=== PATIENT | male | born 1950 | race Caucasian/White ===

== ENCOUNTER 2019-01-19 21:43 | Inpatient (IN) ==
[2019-01-19] MEDS ORDERED: NS 1,000 ML IV ONE (22:30)
[2019-01-19 23:01] LABS: BASO# 0.01 X1000 (0.0-0.2); BASO% 0.1 % (0.0-0.8); EOS# 0.03 X1000 (0.0-0.7); EOS% 0.4 % (0.0-10.0); HEMATOCRIT 32.9 % (42.0-52.0); IMM GRAN# 0.01 X1000 (0.0-0.04); IMM GRAN% 0.1 % (0.0-0.5); LYMPH# 1.11 X1000 (1.2-3.4); LYMPH% 16.1 % (20.5-51.1); MCH 32.5 PG (27-31); MCHC 33.4 g/dL (33-37); MCV 97.3 FL (81-99); MONO# 0.59 X1000 (0.11-0.59); MONO% 8.6 % (1.7-9.3); MPV 8.6 FL (7.4-10.4); NEUT# 5.14 X1000 (1.4-6.5); NEUT% 74.7 % (42.2-75.2); PLT 260 X1000 (130-400); RBC 3.38 XMIL (4.7-6.1); WBC 6.89 X1000 (4.8-10.8)
[2019-01-19 23:39] LABS: ALBUMIN 3.4 g/dL (3.5-5.0); CALCIUM 10.6 mg/dL (8.8-10.2); CREATININE 2.8 mg/dL (0.7-1.2); POTASSIUM 4.8 mmol/L (3.5-5.1); TOTAL BILIRUBIN 0.4 mg/dL (0.20-1.00); TOTAL PROTEIN 8.1 g/dL (6.3-8.3)
[2019-01-20] MEDS ORDERED: NORCO-7.5 PO ONE (00:08)
--- NOTE | 2019-01-20 00:24 | PROVIDER DOCUMENTATION ---
This chart was entered by Sulema Wright Scribe, acting as scribe for Garcia Gudino MD. HPI-General Adult - General Chief Complaint: Altered Mental Status Stated Complaint: AMS Time Seen by Provider: 01/19/19 21:59 Source: patient, family Allergies/Adverse Reactions: Patient Allergies Allergy/AdvReac Type Severity Reaction Status Date / Time cephalexin monohydrate * Allergy Mild HIVES Verified 01/13/19 09:33 [From Keflex] Egg Derived Allergy Unknown Verified 01/13/19 09:33 morphine AdvReac Severe CONFUSION Verified 01/13/19 09:33 Home Medications: Home Medication List Medication Instructions Recorded Confirmed Last Taken Type Bupropion HCl [Wellbutrin Xl] 300 mg PO DAILY 11/24/18 01/19/19 01/13/19 History Irbesartan 300 mg PO DAILY 11/24/18 01/19/19 01/14/19 06:00 History Metoprolol Succinate E.r. [Toprol 50 mg PO DAILY 11/24/18 01/19/19 01/14/19 06: 00 History Xl] Omeprazole [Prilosec] 20 mg PO DAILY 11/24/18 01/19/19 01/13/19 History Acetaminophen [Acetaminophen Extra 500 mg PO PRN PRN 01/13/19 01/19/19 01/13/19 History Strength] Amoxicillin 1,600 mg PO DIRECTED 01/13/19 01/19/19 01/14/19 06:00 History Diphenhydramine HCl 2 cap PO PRN PRN 01/13/19 01/19/19 3 Days Ago History ~01/11/19 Gabapentin [Neurontin] 2 cap PO TID 01/13/19 01/19/19 01/13/19 History Guaifenesin/Dextromethorphan 10 ml PO PRN PRN 01/13/19 01/19/19 01/13/19 History [Tussin Dm Cough Syrup] Ibuprofen [Motrin] 100 mg PO PRN PRN 01/13/19 01/19/19 3 Days Ago History ~01/11/19 Morphine Ir 15 mg PO Q6H PRN 01/13/19 01/19/19 01/14/19 06:00 History Ranitidine [Zantac] 300 mg PO QHS PRN 01/13/19 01/14/19 3 Days Ago History ~01/11/19 - History of Present Illness -Gen Adult Nature of Presenting Problems: pt is a 68 yr old male presenting via EMS from home, pt was AMS when EMS arrived at the scene, gave 1mg of Narcan IV. PT is LOCx3 now. Pt reports broken left ribs after having bone biopsy done last . shortness of breath, pain with inspiration. reports pt has been sleeping all day, difficult to rouse, pt has been taking 15mg morphine x 4 daily x 1 week, last dose of morphine was 0715 this AM.pt has had little to eat or drink today, no urine output x 24+hours Location of Pain/Injury: reports: chest (left rib area) Pain Radiation: reports: no radiation Quality of Pain: reports: sharp Severity: reports: severe Onset/Duration: reports: 6 days ago Timing: reports: still present, getting worse Context/Activities at Onset: reports: other (bone biopsy) Modifying Factors: improves with: breathing (worsens pain), coughing (worsens pain), other medication (morphine 15mg 4x daily without relief, gabapentin-no relief) Associated Symptoms: reports: chest pain, cough, fatigue, genitourinary problems (no urine x 24+ hours), loss of appetite, malaise, shortness of breath , pain with inspiration, weakness. denies: fever/chills Similar Symptoms Previously?: Yes Recently seen or treated by another doctor?: Yes Review of Systems - Adult - REVIEW OF SYSTEMS - ADULT Constitutional: reports: jose. denies: chills, fever Eyes: reports: no symptoms reported Ears, Nose, Mouth & Throat: reports: no symptoms reported Cardiovascular: reports: chest pain (rib pain). denies: palpitations, syncope Respiratory: reports: cough, dyspnea on exertion, pleurisy, shortness of breath Gastrointestinal: reports: poor appetite. denies: abdominal pain, diarrhea, nausea, vomiting Genitourinary: reports: other (no urine x 24+ hours) Musculoskeletal: reports: bone pain (left low rib pain). denies: back pain Integumentary: reports: no symptoms reported Neurological: denies: dizziness/vertigo, headache/migraines Psychiatric: reports: no symptoms reported Endocrine: reports: no symptoms reported Hematologic/Lymphatic: reports: no symptoms reported Allergic/Immunologic: reports: no symptoms reported All Other Systems: Reviewed and Negative Past History - Adult - PAST MEDICAL HISTORY-ADULT Review of Records: reports: Old Records Reviewed, Nursing Assessment Review, Medications Reviewed, Social history reviewed & non-contributory. Major Childhood Illnesses: reports: denies history Cardiovascular: reports: HTN Respiratory: reports: denies history Gastrointestinal: reports: denies history Obstetrical/Gynecological: reports: denies history Genitourinary: reports: denies history Musculoskeletal: reports: denies history Neurological: reports: denies history Endocrine/Immune: reports: denies history Other Conditions: reports: denies history - PRIOR SURGERIES/PROCEDURES Surgical/Procedure History: reports: joint replacement (total knee replacement) - IMMUNIZATION STATUS Childhood Immunizations: See Nurse Assessment Flu Vaccine: See Nurse Assessment - FAMILY HISTORY Family History: reviewed, not pertinent - SOCIAL HISTORY Smoking: quit greater than 1 year Substance Use: denies Living Situation: family Physical Exam-General - PHYSICAL EXAM-ADULT Initial Vital Signs Reviewed: Yes - CONSTITUTIONAL General Appearance: moderate distress, obese, lethargic, slow to respond - EYES Eyes: PERRL/EOMI - HEAD, EARS, NOSE, MOUTH & THROAT HENMT: normocephalic/atraumatic, moist mucous membranes - NECK Neck: non-tender, full range of motion, supple, normal inspection Progress - PLAN OF CARE/RESULTS Progress/Plan/Lab Results: Vital Signs - 8 hr 01/19/19 21:55 Temperature 98.9 F Pulse Rate 80 Respiratory Rate 15 Blood Pressure 131/86 O2 Sat by Pulse Oximetry 82 L A/P: MAXIMO pt had broken ribs s./p rib biopsy for suspected MM. Pt has been taking morphine liquid 4-6 times per day, CXR R sided infiltrates, WBC wnl. Started IV fluids and AB, will gibe norco for pain, IV fluid hydration. AMS suspected due to MAXIMO and increased metabolites from morphine not being metabolized. Pt responded imm to Narcan. Pt has not been using incentive spiromertry Result Diagrams: 01/19/19 22:50 01/19/19 22:50 - EKG 1 Time of EKG reading by physician:: 22:36 EKG Read and Signed by:: Garcia Gudino EKG Interpretation (*Must complete 3 of following elements*): Abnormal ( bifasicular block, left anteroir fasicular block) Rate: 76 Rhythm: nsr [place]: normal QRS: RBB - XRAY 1 XRAY Study: Chest Impression: Abnormal (infiltrates right middle lobe) - CT/MRI 1 CT Study: Head Impression: Normal (normal ct of the head) - CONSULTS/PCP/HOSPITALIST Notification #1 *Consult/PCP/Hospitalist*: Dr Cook Time Discussed: 00:05 Reason/Comments: plan of care for pt admission Consult Disposition: Admit Departure - Departure Date of Disposition Decision: 01/20/19 Time of Disposition Decision: 00:11 DIAGNOSIS: Acute kidney injury, Altered mental status Disposition: ADMITTED INPATIENT 09 Certified Medical Emergency: Emergent Condition: Stable Referrals and Follow-Ups: Yunior Pascual MD [Primary Care Provider] - - Critical Care Note This patient required my direct & personal management of CC.: No Attestation - Physician/ VERENA Attestation Patient care was provided by Advanced Practice Provider:: No The physician spent face to face time with patient:: Yes Advanced Practice Provider documentation review:: Supervising physician onsite and consulted in the evaluation and care of this patient. The physician did have a face to face encounter with the patient. This chart was documented by the indicated scribe, (Sulema Wright, Gary) and accurately reflects the services I performed and decisions made by me, Garcia Gudino MD, as attested by the provider's signature.
--- NOTE | 2019-01-20 00:32 | EKG Report ---
Test Performed on : 01/19/2019 10:36:18 PM Test Reason : ams Blood Pressure : / mmHG Vent. Rate : 076 BPM Atrial Rate : 076 BPM P-R Int : 172 ms QRS Dur : 144 ms QT Int : 378 ms P-R-T Axes : 023 -52 018 degrees QTc Int : 425 ms Normal sinus rhythm. Right bundle branch block Left anterior fascicular block Bifascicular block Abnormal ECG When compared with ECG of 14-JAN-2019 10:54, No significant change was found Unconfirmed Result
[2019-01-20 00:55] LABS: URINE BACTERIA 2+ /HFP; URINE EPITHELIAL CELLS <10 /HPF (<10); URINE RBC <10 /HPF (<10); URINE SOURCE CATH; URINE WBC <10 /HPF (<10); URINE YEAST NONE SEEN /HPF
[2019-01-20 00:56] LABS: BILIRUBIN URINE NEGATIVE (NEGATIVE); BLOOD URINE 2+ (NEGATIVE); CLARITY CLEAR (CLEAR); COLOR YELLOW; GLUCOSE URINE NEGATIVE (NEGATIVE); KETONE URINE NEGATIVE (NEGATIVE); LEUKOCYTES URINE TRACE (NEGATIVE); NITRITE URINE NEGATIVE (NEGATIVE); PROTEIN URINE 1+(30 mg/dL) mg/dL (NEGATIVE); SP GRAVITY URINE 1.025; UROBILINOGEN URINE NORMAL
[2019-01-20] MEDS ORDERED: SALINE LOCK IV FLUID XX ONE (01:10)
[2019-01-20] MEDS ORDERED: ROCEPHIN 1 GM in NS 50 ML IV ONE (01:20)
[2019-01-20] MEDS ORDERED: ZITHROMAX 500 MG/NS 500 MG/250 ML IVPB IV ONE (01:20)
[2019-01-20] MEDS: NS 1,000 ML IV SCH ×3 (01:42→22:44)
[2019-01-20] MEDS: DUONEB (A & A) INH SCH ×6 (03:31→23:38)
[2019-01-20] MEDS ORDERED: ROBITUSSIN-DM PO PRN (06:05)
[2019-01-20] MEDS ORDERED: MORPHINE IR PO PRN (06:05)
[2019-01-20] MEDS ORDERED: AMOXICILLIN PO SCH (06:15)
--- NOTE | 2019-01-20 07:06 | Diag Imaging Result Doc PS360 ---
EXAM: CHEST-1 VIEW - 01/19/2019 HISTORY: ams TECHNIQUE: One view chest COMPARISON: 11/25/2018 chest two views FINDINGS: Heart size appears mildly enlarged. There is tortuosity of the thoracic aorta similar to prior. Inspiration is mildly shallow. There is subsegmental atelectasis at the lung bases. The remainder of the lungs appear essentially clear. There is no pleural effusion or pneumothorax identified. IMPRESSION: Mild cardiomegaly. Mildly shallow inspiration with basilar subsegmental atelectasis. No discrete pneumonia. Electronically signed by Berry Hoover 01/20/2019 7:03 AM
--- NOTE | 2019-01-20 07:09 | Diag Imaging Result Doc PS360 ---
EXAM: CT HEAD W/O CONTRAST - 01/19/2019 HISTORY: ams TECHNIQUE: CT head without contrast COMPARISON: 08/25/2017 FINDINGS: There is no evidence of intracranial hemorrhage, mass effect, midline shift, or hydrocephalus. There are minimal chronic microvascular ischemic changes. There is no evidence of infarct, although acute infarcts may not be immediately visible. There is no evidence of skull fracture. IMPRESSION: No visible acute intracranial abnormality. No hemorrhage or mass effect. The prevention specialist radiologist provided preliminary results at 11:27 PM 01/19/2019. This exam was performed using automated exposure control, adjustment of mA or kV according to patient size, and/or use of iterative reconstruction technique. Electronically signed by Berry Hoover 01/20/2019 7:06 AM
[2019-01-20] MEDS: NORCO-5 PO PRN ×4 (07:38→22:45)
[2019-01-20] MEDS: WELLBUTRIN XL PO SCH (11:00)
[2019-01-20] MEDS: PRILOSEC PO SCH (11:01)
[2019-01-20] MEDS: NEURONTIN PO SCH ×3 (11:01→17:00)
[2019-01-20 15:41] LABS: BASO# 0.01 X1000 (0.0-0.2); BASO% 0.2 % (0.0-0.8); EOS# 0.04 X1000 (0.0-0.7); EOS% 0.7 % (0.0-10.0); HEMATOCRIT 32.2 % (42.0-52.0); HEMOGLOBIN 10.6 g/dL (14.0-18.0); IMM GRAN# 0.01 X1000 (0.0-0.04); IMM GRAN% 0.2 % (0.0-0.5); LYMPH% 23.7 % (20.5-51.1); MCH 32.1 PG (27-31); MCHC 32.9 g/dL (33-37); MCV 97.6 FL (81-99); MONO% 10.2 % (1.7-9.3); MPV 8.5 FL (7.4-10.4); NEUT# 3.84 X1000 (1.4-6.5); PLT 251 X1000 (130-400); RDW 12.8 % (11.5-14.5)
[2019-01-20 15:49] LABS: ALBUMIN 3.2 g/dL (3.5-5.0); CALCIUM 10.7 mg/dL (8.8-10.2); POTASSIUM 4.2 mmol/L (3.5-5.1); TOTAL BILIRUBIN 0.3 mg/dL (0.20-1.00); TOTAL PROTEIN 8.2 g/dL (6.3-8.3)
--- NOTE | 2019-01-20 20:13 | PROGRESS NOTE ---
DATE: 01/20/2019 REASON FOR ADMISSION: Admitted to the hospital last night because of altered mental status. SUBJECTIVE: He has recently had some issues trying to identify some protein spikes. It appears that he has a large percentage of plasmacytes. His oncologist is on vacation currently. He was admitted and given medicines to counteract some of the pain medications, and he awakened last night. OBJECTIVE: He is currently running no fever, not having any chills. Vital signs are stable. His O2 saturation is low at 93% on 3 liters. We are in the process of talking about the possibility of going to [place] to a multiple myeloma clinic. LABORATORY DATA: Today his sodium is 133, potassium 4.2, chloride 95. CO2 is 26, BUN 44, creatinine 2.0. He is getting an ongoing infusion of saline. LFTs are normal. Calcium is 10.7. He is currently on empiric antibiotic therapy. He has a catheterized urine pending. ANTIBIOTICS: He is getting azithromycin and ceftriaxone. IMAGING: Chest x-ray showed heart size was mildly enlarged. There is tortuosity of thoracic aorta, similar to prior. It shows poor inspiration and subsegmental atelectasis in the lung bases. The remainder of the lungs were essentially clear. Mild cardiomegaly. No distinct pneumonia. ASSESSMENT/PLAN: He is getting a large amount of hydrocodone, and he is taking 7.5/325. He has also been getting morphine 15 mg every 6 hours, along with gabapentin, which may be making him excessively sleepy. We are going to back off a bit on the morphine. So, we are going to make adjustments for those. We just want to make sure we do not sedate him too much. cc: Yunior Pascual MD
[2019-01-20] MEDS ORDERED: ROCEPHIN 1 GM in NS 50 ML IV SCH (21:00)
[2019-01-20] MEDS ORDERED: ZITHROMAX 500 MG/NS 500 MG/250 ML IVPB IV SCH (22:00)
[2019-01-21] MEDS: NORCO-5 PO PRN ×3 (02:08→17:30)
[2019-01-21] MEDS: DUONEB (A & A) INH SCH ×4 (03:46→16:00)
[2019-01-21 06:40] LABS: AGAP 11; ALKALINE PHOSPHATASE 81 U/L (32-122); BUN 26 mg/dL (8-22); CALCIUM 10.3 mg/dL (8.8-10.2); CHLORIDE 101 mmol/L (98-107); COSMO 275; ESTIMATED GFR > 60; GLUCOSE 101 mg/dL (70-104); GOT 14 U/L (10-34); GPT 10 U/L (10-44); POTASSIUM 3.9 mmol/L (3.5-5.1); SODIUM 135 mmol/L (136-145); TCO2 23 mmol/L (25-35); TOTAL PROTEIN 7.9 g/dL (6.3-8.3)
[2019-01-21] MEDS: NEURONTIN PO SCH ×2 (09:51→17:25)
[2019-01-21] MEDS: WELLBUTRIN XL PO SCH (09:51)
[2019-01-21] MEDS: NS 1,000 ML IV SCH ×3 (09:51→17:34)
[2019-01-21] MEDS: PRILOSEC PO SCH (09:52)
[2019-01-21 12:47] VITALS: BP 152/84
[2019-01-21 15:35] LABS: BE 1.5 mmoll (-3.0-3.0); BLOOD TYPE ARTERIAL; HCO3-(ACT) 25.9 mmoll (20.0-26.0); METHB 1.1 % (0.0-1.5); O2(CT) 18.9 mL/dL (15.0-23.0); PCO2(98.6) 35 mmHg (35-45); PO2(98.6) 55 mmHg (60-100); SAMPLE BLOOD; SAO2 92.9 % (95.0-100.0); pH(98.6) 7.46 (7.35-7.45)
[2019-01-21 15:41] LABS: ALLEN TEST YES; MODALITY ROOM AIR
--- NOTE | 2019-01-21 16:03 | Diag Imaging Result Doc PS360 ---
EXAM: CHEST-2 VIEWS - 01/21/2019 HISTORY: dyspnea TECHNIQUE: Chest two views COMPARISON: 01/19/2019 one view chest FINDINGS: Heart size appears within normal limits and mildly decreased compared to prior. There is tortuosity of the thoracic aorta similar to prior. There is subsegmental atelectasis at the lung bases. The posterior left hemidiaphragm appears mildly elevated on the lateral view, apparently from some gaseous distention of underlying splenic flexure of colon in the left upper quadrant abdomen. There is no dense consolidation, gross vascular congestion, substantial pleural effusion, or pneumothorax identified. IMPRESSION: Mild subsegmental atelectasis at bilateral lung bases. Apparent mild elevation of the posterior left hemidiaphragm by some gaseous distention of underlying splenic flexure colon in the left upper quadrant abdomen. No discrete pneumonia. Electronically signed by Berry Hoover 01/21/2019 4:00 PM
--- NOTE | 2019-02-09 09:30 | HISTORY AND PHYSICAL ---
HISTORY OF PRESENT ILLNESS: This is a 68-year-old patient of mine from the office who recently had been having some issues with some protein electrophoresis abnormalities and protein spikes. He was brought to the ER because of supposed altered mental status. He was brought in by EMS. The patient was altered when EMS arrived at the scene, gave 1 mg Narcan IV. The patient was alert and oriented when he presented. The patient reports broken left ribs after having bone biopsy done . Shortness of breath, pain with inspiration. states he has been sleeping all day, difficult to arouse. The patient has been taking 15 mg morphine 4 times a day x1 week. The last dose of morphine was at 07:15 this a.m. The patient has had little to eat or drink the day of presentation. No urine output for 24 hours. He is complaining of left rib pain, sharp in nature. Been there for 6 weeks, pretty severe, getting worse with any kind of movement, cough. The patient has had a recent bone biopsy. He said the pain that is in his rib cage is worsened by breathing deeply, coughing. He has used morphine without relief, gabapentin with no relief. He has generalized malaise, has lost his appetite, shortness of breath, pain with inspiration, weakness. Denied fever, denied chills when he arrived. ALLERGIES: He is allergic to morphine supposedly, Keflex, and eggs. MEDICATIONS: He is taking Wellbutrin 300 daily, irbesartan 300 daily, metoprolol succinate 50 daily, omeprazole 20 daily, Tylenol 500 mg, amoxicillin 1600 mg, gabapentin 2 caps p.o. t.i.d., dextromethorphan 10 mg p.o. p.r.n., ibuprofen 100 p.o. p.r.n., morphine 15 every 6 hours even though he claims he is allergic to that they were giving him that, and he is taking Zantac. REVIEW OF SYSTEMS: He denies any fever or chills. He has had no significant weight loss. No change in visual acuity. Ears, nose, and throat: No pharyngitis, sinusitis, or otitis. Cardiovascular: He has had chest pain associated with movement in his left chest with breathing or sitting up. Denies palpitations, syncope. Respiratory: He has a cough. He is short of breath. Hurts to breathe. He is short of breath on exertion. Gastrointestinal: He has poor appetite. Denies belly pain, diarrhea, nausea and vomiting. Genitourinary: He has had no urine output he claims for 24 hours. No dysuria, hematuria, polyuria, pyuria. Musculoskeletal: He has bone pain in his left lower rib cage. Skin: No rashes. Neurologic: No dizziness, vertigo, headaches, migraines. Psychiatric: He is depressed and anxious. His best friend also has multiple myeloma. Hematologic: He is not a bleeder or clotter. 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 PAST MEDICAL HISTORY: He has a history of hypertension, chronic back pain. He has had total knee replacement, history of chronic back pain. Used to work in a factory. FAMILY HISTORY: Negative. SOCIAL HISTORY: This kalia is an ex-smoker, more than a year. Lives with his family. PHYSICAL EXAMINATION: VITAL SIGNS: On admission temperature was 98.9, pulse 80, respiratory rate 15, blood pressure 131/86. GENERAL APPEARANCE: He was distressed, obese, was somewhat lethargic, slow to respond. HEENT: Pupils were PERRL. EOMs were intact. Head normocephalic, atraumatic. Moist mucous membranes. NECK: Supple. Bounding carotids without thyromegaly. Midline trachea. No lymphadenopathy. CHEST: Clear. Bilateral breath sounds. CARDIOVASCULAR: Regular rhythm and rate. No murmurs, gallops, clicks, or rubs. ABDOMEN: Obese. No appreciated organomegaly. No CVA tenderness. Positive bowel sounds. EXTREMITIES: Negative for clubbing, cyanosis, or edema. NEUROLOGICAL: No focal neurological deficits. He had an AP chest x-ray. The patient had a broken rib status post rib biopsy for suspected multiple myeloma. He has been taking morphine liquid 4 to 6 times a day. Chest x-ray showed right side infiltrates. White count was normal. He was started on fluids and antibiotics. Was given [place] for pain. We stopped the morphine. He was given IV hydration. Altered mental status suspected due to increased metabolites from morphine not being metabolized. The patient responded to Narcan. Has not been using his incentive spirometer. EKG sinus rhythm, right bundle. Normal sinus rhythm otherwise. Rate 76. Chest x-ray abnormal infiltrate right middle lobe. CT of the head normal. ADMITTING DIAGNOSIS: 1. Acute kidney injury. 2. Altered mental status. 3. New onset multiple myeloma. 4. Chronic back pain. 5. [*] 6. Prerenal azotemia. He was admitted. cc: Yunior Pascual MD
== END 2019-01-21 18:21 | disposition home or self-care (01) | DRG 683 ==
LOC: P.ED 21:43 → SUATTDRO 21:44 → P.MEDSURG 21:44
PROVIDERS: ADMIT Internal Medicine; ATTEND Internal Medicine
CPT/HCPCS: 70450; 71010; 71020; 71045; 71046; 80053; 81001; 82805; 84484; 85025; 87088; 93005; 94640; 94761; 96374; 99285; A9270; J0456; J0696; J7030